=== PATIENT | female | born 1995 | race Two or more races ===

== ENCOUNTER 2025-05-04 19:22 | Emergency (ER) | payer OTHER ==
[~2025-05-04] VITALS: Ht 165.1 cm; Wt 82.6 kg
[2025-05-04] MEDS ORDERED: FOLIC ACID0.8 M1 (19:36)
[2025-05-04] MEDS ORDERED: PRENATABS FA T1 EACH (19:36)
[2025-05-04 20:29] LABS: BASO % 0.3 % (0.1-1.2); EOS # 0.27 (0.04-0.54); EOS % 2.1 % (0.7-7.0); LYMPH # 3.21 (1.18-3.74); LYMPH % 24.4 % (19.3-53.1); MEAN PLATELET VOLUME 10.90 fl (9.4-12.4); MONO # 0.64 (0.24-0.82); MONO % 4.9 % (4.7-12.5); NEUT # 8.95 (1.56-6.13); NEUT % 68.1 % (34.0-71.1); RED CELL DISTRIBUTION WIDTH 12.6 % (11.6-14.4)
[2025-05-04 21:19] LABS: ALT/SGPT 47.0 U/L (12-78); AST/SGOT 21.0 U/L (15-37); BILIRUBIN TOTAL 0.26 mg/dL (0.3-1.2); BUN CREA RATIO 16.0 (7.0-25.0); CREATININE SERUM 0.56 mg/dL (0.55-1.02); GFR 128.9; GLOBULINA 4.1 G/DL (2.4-3.5); GLUCOSE FASTING 89.0 mg/dL (65-100); HCG QUANTITATIVE 38861.0 mUI/mL (1-3); OSMOLALITY SERUM 272.0 MOSM/KG (275-295)
[2025-05-04 23:37] LABS: URINE APPEARANCE Clear; URINE BILIRRUBIN Negative (NEGATIVE); URINE BLOOD Negative; URINE COLOR Yellow; URINE GLUCOSE Negative (NEGATIVE); URINE KETONE Negative (NEGATIVE); URINE LEUKOCYTE Negative; URINE NITRATE Negative; URINE PROTEIN Negative (NEGATIVE); URINE UROBILINOGEN 0.2 E.U./dl
[2025-05-04 23:43] LABS: URINE BACTERIA 55.1 uL (0.0-1933); URINE EPITHELIAL CELLS 3.0 uL (0.0-38.8); URINE RBC 3.3 uL (0.0-20.8); URINE WBC 2.4 uL (0.0-23.2)
[2025-05-04 23:48] LABS: URINE CAST 0.00 uL (0.0-1.40)
[2025-05-05] MEDS ORDERED: PEPCID AC20 MG PO (00:30)
[2025-05-05] MEDS ORDERED: CEFUROXIME500 MG PO (00:30)
== END 2025-05-05 00:53 | disposition home or self-care (01) ==
LOC: ER 19:22
PROVIDERS: General Practice
DX: O26.892 Other specified pregnancy related conditions, second trimester (principal); Z3A.14 14 weeks gestation of pregnancy; R35.0 Frequency of micturition

== ENCOUNTER → 2025-06-15 06:03 | Outpatient (CLI) | payer OTHER ==
[~2025-06-15 06:03] MED LIST: CEFUROXIME500 MG PO; FOLIC ACID0.8 M1; PEPCID AC20 MG PO; PRENATABS FA T1 EACH
== END | disposition home or self-care (01) ==
LOC: PRENATAL 06:03
PROVIDERS: ATTEND Obstetrics & Gynecology Maternal & Fetal Medicine
DX: O44.02 Complete placenta previa NOS or without hemorrhage, second trimester (principal); Z3A.20 20 weeks gestation of pregnancy